=== PATIENT | male | born 1960 | race Caucasian/White ===

== ENCOUNTER → 2017-10-20 | Outpatient (CLI) | payer BC ==
[~2017-10-20] MED LIST: ALPR-411 PO; IBUP-1050 PO; PARO30TA4 PO
--- NOTE | 2017-10-20 11:40 | DIAGNOSTIC IMAGING REPORT ---
LUMBAR SPINE 5 VIEWS CLINICAL HISTORY: Sciatica. FINDINGS: 5 views of the lumbar spine are correlated with abdominal CT dated 02/19/2014. The skeletal structures are well mineralized. There is no radiographic evidence of fracture or malalignment. Vertebral body height and alignment are maintained. The transverse and spinous processes are intact. There is no evidence of spondylolysis. Anterior osteophytes are seen throughout. The intervertebral disc spaces are well-maintained. The visualized bony pelvis appears intact. There are healed left posterior rib fractures. There is a nonobstructed abdominal bowel gas pattern. Suture material is noted in the pelvis. Atherosclerotic calcification is seen in the abdominal aorta. IMPRESSION: No acute bony abnormality is identified in the lumbar spine. Electronically signed by: Jd Jolley M.D. 10/20/2017 11:38 AM Dictated Date/Time: 10/20/2017 11:26 AM
== END | disposition home or self-care (01) ==
LOC: C.RAD 11:04
PROVIDERS: ATTEND Family Medicine
DX: M54.30 Sciatica, unspecified side (principal)